=== PATIENT | male | born 1960 | race Caucasian/White ===

== ENCOUNTER 2018-03-30 12:25 | Observation (INO) | payer BC ==
[~2018-03-30] VITALS: Ht 167.6 cm; Wt 6.4 kg
[2018-03-30] VITALS (13 sets, daily range): BP systolic 111–149; BP diastolic 73–91
[2018-03-30 13:31] LABS: HEMATOCRIT 47.7 % (42.0-52.0); HEMOGLOBIN 16.1 gm/dL (14.0-18.0); MCH 31.5 pg (26.0-34.0); MCHC 33.9 g/dL (28.0-37.0); MCV 93.1 fL (80.0-100.0); MPV 9.9 fl. (7.2-11.1); RBC 5.12 mil/uL (4.50-6.00); RDW-CV 13.8 % (10.5-14.5); WBC 8.4 thou/uL (4.0-11.0)
[2018-03-30 13:40] LABS: CALCIUM 8.4 mg/dL (8.5-10.1); CREATININE 1.2 mg/dL (0.6-1.3); POTASSIUM 3.9 mmol/L (3.5-5.1)
[2018-03-30 13:42] LABS: APTT 27.8 Seconds (25.0-31.3); INR 1.1; PROTIME 10.4 Seconds (9.20-11.50)
--- NOTE | 2018-03-30 15:08 | EKG ---
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: [facility] : 1960 Requested By: Maynor Daniels Order Number: [id number] Reading MD: Maynor Daniels Measurements Intervals [place] Rate: 59 P: 62 WA: 158 QRS: 46 QRSD: 97 T: 61 QT: 419 QTc: 415 Interpretive Statements Sinus rhythm Possible left atrial enlargement Diffuse ST segment elevation, early repolarization No previous ECG available for comparison Electronically Signed On 03-30-2018 15:08:05 CDT by Maynor Daniels [email or web address] <ELECTRONICALLY SIGNED> By: Maynor Daniels MD, [facility] 03/30/18 1508 1402 1402 Maynor Daniels MD, FACC /EPI
[2018-03-30] MEDS ORDERED: LIPITOR 20 MG T20 M1 PO (16:45)
[2018-03-30] MEDS ORDERED: LOPRESSOR25 PO (16:45)
[2018-03-30] MEDS ORDERED: PLAVIX 75 MG TA75 M1 PO (16:46)
[2018-03-30] MEDS ORDERED: LISINOPRIL2.5 MG PO (16:46)
[2018-03-30] MEDS ORDERED: ASPIR 8181 MG PO (16:47)
[2018-03-30] MEDS ORDERED: NITROGLYCERIN0.4 MG SUBLING (16:47)
--- NOTE | 2018-03-30 18:12 | NUR ---
RECEIVED REPORT AT BEDSIDE FROM GAS OPERATIONS SUPERINTENDENT NURSE AND ASSUMED CARE OF PT @ 2170.PT IS A/O,VSS,TRACING SB ON THE MONITOR.LUNG SOUNDS ARE CLEAR.LAST BM WAS YESTERDAY.IV RIGHT AC PATENT WITH FLUIDS INFUSING PER ORDERS.RIGHT RADIAL CATH CLEAN,DRY, AND INTACT.PT IS CALM AND COOPERATIVE WITH NO C/O PAIN.PT IS UP AD CHANDAN IN ROOM.LEFT RESTING IN BED WITH CALL LIGHT WITHIN REACH.WILL CONTINUE TO MONITOR FOR DURATION OF SHIFT.PT INFORMED OF PLAN OF CARE AND COMMUNICATES UNDERSTANDING.HOURLY ROUNDING COMPLETED FOR PT SAFETY.
[2018-03-31 03:43] VITALS: BP 127/78
--- NOTE | 2018-03-31 04:43 | NUR ---
ASSUMED CARE OF PT AT 1900. PT IS ALERT AND ORIENTED. VSS. PERRLA. NO COMPLAINTS OF PAIN. STEADY GAIT. UP AD CHANDAN. PT IS IN SINUS RYTHM ON THE TELEMETRY. PT IS RESTING COMFORTABLY IN BED. RESPIRATIONS ARE EVEN AND NONLABORED. WILL CONTINUE TO MONITOR PT.
[2018-03-31 05:03] LABS: ABSOLUTE BASOPHILS 0.1 thou/uL (0.0-0.2); ABSOLUTE EOSINOPHILS 0.3 thou/uL (0.0-0.7); ABSOLUTE LYMPHOCYTES 3.1 thou/uL (0.8-5.3); ABSOLUTE MONOCYTES 0.6 thou/uL (0.0-1.2); ABSOLUTE NEUTROPHILS 5.9 thou/uL (1.6-8.1); BASOPHILS 0.9 %; EOSINOPHILS 3.5 %; HEMATOCRIT 45.5 % (42.0-52.0); HEMOGLOBIN 15.3 gm/dL (14.0-18.0); LYMPHOCYTES 30.8 %; MCH 31.5 pg (26.0-34.0); MCHC 33.7 g/dL (28.0-37.0); MCV 93.3 fL (80.0-100.0); MONOCYTES 5.9 %; MPV 10.3 fl. (7.2-11.1); NUCLEATED RBCS 0 /100WBC; PLATELET COUNT* 168 thou/uL (150-400); POLYS 58.9 %; RBC 4.88 mil/uL (4.50-6.00); RDW-CV 14.1 % (10.5-14.5); WBC 10.1 thou/uL (4.0-11.0)
[2018-03-31 05:29] LABS: CREATININE 1.2 mg/dL (0.6-1.3); TROPONIN-I LEVEL <0.06 ng/mL (<0.06)
[2018-03-31 08:00] VITALS: BP 148/82
--- NOTE | 2018-03-31 09:39 | NUR ---
RECEIVED REPORT FROM CHARITY AND ASSUMED CARE OF PT @ 2798.PT IS A/O,VSS,TRACING SR ON THE MONITOR.LUNG SOUNDS ARE CLEAR.LAST BM WAS YESTERDAY.IV RIGHT AC PATENT AND SALINE LOCKED. PT IS CALM AND COOPERATIVE WITH NO C/O PAIN.UP AD CHANDAN IN ROOM.HOURLY ROUNDING COMPLETED FOR PT SAFETY.CALL LIGHT WITHIN REACH.PT OK FOR DISCHARGE BY CARDIOLOGY.PAPERWORK COMPLETED AND GIVEN TO PT.IV REMOVED.HEART MONITOR REMOVED AND RETURNED TO NURSING STATION.ALL PERSONAL BELONGINGS PACKED AND TAKEN WITH PT.
[2018-03-31 09:53] VITALS: BP 148/82
[2018-03-31 10:12] VITALS: BP 148/82
--- NOTE | 2018-03-31 11:14 | EKG ---
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
--- NOTE | 2018-03-31 16:18 | H ---
[place] [address] HISTORY AND PHYSICAL Name: JOSE GUADALUPE ABRAMS Room: [address] Timothy#: [id number] Admission: 03/30/18 Attend Phys: Maynor Daniels MD Discharge: 03/31/18 Date of : 64 Report #: [id number] THIS REPORT FOR: //name// CC: EARNEST Daniels INDICATION: Chest pain consistent with progressive angina. HISTORY OF PRESENT ILLNESS: The patient is a 57-year-old gentleman who was seen at outside hospital with recurrent chest pain last weekend and then again on Tuesday, described as midsternal, similar to the pain he experienced 2 years ago with an episode of unstable angina. Two years ago, he underwent percutaneous coronary intervention with drug-eluting stent placed to the mid left anterior descending coronary artery. EKG shows sinus rhythm with some peaked T waves in the precordial leads. I do not appreciate Q-waves or significant ST segment depression or elevation. Risk factors include tobacco use, hypertension and hyperlipidemia. PAST MEDICAL HISTORY: 1. Coronary artery disease. 2. Hyperlipidemia. 3. Hypertension. 4. Chronic tobacco use. SOCIAL HISTORY: The patient smokes 1-1/2 packs of cigarettes daily. He does not drink alcohol. FAMILY HISTORY: Noncontributory. REVIEW OF SYSTEMS: CONSTITUTIONAL: He denies convulsions, seizures or focal paralysis. GENERAL: There is no unexplained weight loss, fevers, chills or sweats. CHEST: He has occasional cough that is nonproductive. He denies underlying lung disease. CARDIOVASCULAR: As outlined above. ENDOCRINE: No history of diabetes or thyroid disease. GASTROINTESTINAL: No nausea, vomiting, hematemesis, melena, hematochezia or jaundice. GENITOURINARY: No dysuria, hematuria. He does have BPH. HEMATOLOGIC AND LYMPHATIC: No history of anemia, bleeding disorder, cancer, blood clots. ALLERGY AND IMMUNOLOGIC: No significant drug or seasonal allergies. MUSCULOSKELETAL: He has some mild arthritis without connective tissue disease. SKIN: No recent rashes, hives or chronic skin conditions. EYES: He does wear glasses. He has no acute change in vision. EARS, NOSE, MOUTH, THROAT: He denies decreased [place] [address] HISTORY AND PHYSICAL Name: JOSE GUADALUPE ABRAMS Room: [address] Timothy#: [id number] Admission: 03/30/18 Attend Phys: Maynor Daniels MD Discharge: 03/31/18 Date of : 64 Report #: [id number] PHYSICAL EXAMINATION: VITAL SIGNS: Stable. Blood pressure 140/80, heart rate 68. GENERAL: This is a pleasant gentleman who is in no distress. Mood and affect appropriate. HEENT: Extraocular muscles intact. Mucous membranes are moist. NECK: Shows no jugular venous distention. There are no carotid bruits. CHEST: Reveals clear lung castellanos without wheezes or rales. CARDIAC: Reveals a regular rhythm, normal S1 and S2. I do not appreciate gallop or murmur. ABDOMEN: Reveals normal bowel sounds. The abdomen is soft, nontender. EXTREMITIES: Show no edema. Peripheral pulses 2+ and palpable. SKIN: Warm and dry. IMPRESSION AND RECOMMENDATIONS: 1. Coronary artery disease with symptoms to suggest progressive angina. We will proceed with cardiac catheterization and coronary angiography. Further intervention will be pending the results of those studies. 2. Hyperlipidemia. Continue atorvastatin with a goal LDL of 70 or less. 3. Hypertension. Blood pressure adequately controlled on current cardiac regimen. 4. Chronic tobacco use, smoking cessation discussed and advised. <ELECTRONICALLY SIGNED> By: Maynor Daniels MD, FACC 03/31/18 1618 1414 1439Maynor Daniels MD, FACC /nt
--- NOTE | 2018-04-03 12:58 | CARD ---
[address] [address] CARDIAC CATH REPORT Name: JOSE GUADALUPE ABRAMS [employer] Room: [address] Jean Pierre Aguirre#: [id number] Admission: 03/30/18 Attend Phys: Maynor Daniels MD Discharge: 03/31/18 Date of : 64 Report #: [id number] THIS REPORT FOR: //name// APPROVED REPORT Study performed: 03/30/2018 13:50:39 Patient Details Patient Status: Out-Patient Room #: 222 The patient is a 57 year-old male Event Personnel Maynor Daniels Greenhouse Assistant, Billie Montiel RN Die Cleaner, Ramirez Collier (R) Monitor, Jaya Quinn Scrub, Britney Cho RTR Scrub, Ti Andrade Security Systems Manager Procedures Performed ROSY Place w/wo Plasty Single LAD Indication Chest pain Risk Factors Arterial Hypertension, Hypercholesterolemia Previous Procedures/Diagnoses Previous PCI Admission/Lab Medications/Medications given during procedure Heparin Unfract. Procedure Narrative The patient was brought electively to the Cardiac Catheterization Laboratory and was prepped and draped in a sterile manner. The right wrist was infiltrated with 1% Lidocaine subcutaneous anesthesia. A Slender Glidesheath sheath was inserted into the Right Radial Artery. Coronary angiography was performed using coronary diagnostic catheters. The right coronary system was accessed and visualized with a DCR: [place] 4.0 5fr catheter. The left coronary system was accessed and visualized with a DCR: [place] 4.0 5fr catheter. Left ventricular/Aortic Valve gradient assessed via catheter pullback. Closure device was deployed with a 6 Fr Vasc-Band Reg 24cm. The patient tolerated the procedure well and there were no complications associated with the procedure. [place] [address] CARDIAC CATH REPORT Name: JOSE GUADALUPE ABRAMS Room: [address]#: [id number] Admission: 03/30/18 Attend Phys: Maynor Daniels MD Discharge: 03/31/18 Date of : 64 Report #: [id number] Intraoperative Conscious Sedation Sedation start time: 14:26 Case end Time: 15:19 Fentanyl 50 mcg Versed 2 mg Fluoro Time: 9.4 minutes Dose: DAP 57453 cGycm2 1754 mGy Contrast Type and Amount: Omnipaque 150 ml Coronary Angiography The patient's coronary anatomy is right dominant. Diagnostic Cath Left Main Normal LAD There is a proximal stent with 70% in-stent restenosis. There is a 70% stenosis in the mid LAD after the takeoff of a first diagonal branch. The remainder of the vessel is free of significant disease. Diagonal 1 There is an ostial 70% stenosis. Diagonal 2 Small in caliber and free of significant disease. Circumflex No hemodynamically significant stenoses noted. OM1 Free of significant disease. Right Coronary There is a 70% proximal right coronary stenosis. The mid and distal vessel are free of significant disease. R PDA Free of significant disease. RPLV Free of significant disease. Ramus There is a ramus branch with marginal distribution. The vessel is free of significant disease. Left Ventriculography Left Ventriculography was not performed. Hemodynamics The aortic pressure is 123/68 mmHg with a mean of 87 mmHg. The left ventricular pressure is 109/10 mmHg with a mean of mmHg. The left ventricular end diastolic pressure is 10 mmHg. There was no gradient across the aortic valve upon pullback. Pullback from the left ventricle to the aorta revealed no gradient across the aortic valve. PCI Technique Lesion Anticoagulation was achieved with Heparin. Patient was preloaded with Plavix. Percutaneous coronary intervention was performed on the mid left anterior descending artery segment. The lesion stenosis prior to intervention was 90% with LELO 3 flow. A 6FR XB LAD 3.0 100CM [place] [address] CARDIAC CATH REPORT Name: JOSE GUADALUPE ABRAMS Room: [address]#: [id number] Admission: 03/30/18 Attend Phys: Maynor Daniels MD Discharge: 03/31/18 Date of : 64 Report #: [id number] Catheter was used to engage the lm ostium. A IG: BMW 190cm Interventional Guidewire was used to cross the lesion. BALLOON DILATION A Balloon catheter Mini Trek RX 2.0 X 8 was inserted and inflated up to 14.00atm for 6seconds. Repeat angiography revealed the following post-dilatation results: 50% stenosis. Additional Inflation: 18.00atm for 16seconds. Stent in the mid lad had diffuse tubular 90% instent restenosis STENT DEPLOYMENT A drug-eluting stent Xience Alpine RX 3.0X38 was inserted and inflated up to 8.00atm for 11seconds. Additional Inflation: 12.00atm for 15seconds. Final angiography reveals 0 % stenosis with LELO 3 flow. COMMENTS Plaque shift during stenting resulted in 80% stenosis of the ostium of the second diagonal artery that arose from within the stent. PCI Technique Lesion 2 Percutaneous Coronary Intervention was performed on the second diagonal branch segment. Patient was preloaded with Plavix. Percutaneous coronary intervention was performed on the second diagonal branch segment. The lesion stenosis prior to intervention was 80% with LELO 3 flow. A 6FR XB LAD 3.0 100CM Guide Catheter was used to engage the lm ostium. A IG: BMW 190cm Interventional Guidewire was used to cross the lesion. Balloon Dilation A Balloon catheter Mini Trek RX 2.0 X 8 was inserted and inflated up to 12.00atm for 13seconds. Repeat angiography revealed the following post-dilatation results: 0% stenosis. Additional Inflation: 18.00atm for 25seconds. Final angiography reveals 0 % stenosis with LELO 3 flow. Conclusion 1. 90% instent restenosis of a stent in the mid lad, with a more distal 80% stenosis noted in the mid lad 2. 80% stenosis noted of the mid rca 3. successful placement of a single drug eluting stent within the previous stent in the mid lad [address] [address] CARDIAC CATH REPORT Name: JOSE GUADALUPE ABRAMS Room: [address] [place]#: [id number] Admission: 03/30/18 Attend Phys: Maynor Daniels MD Discharge: 03/31/18 Date of : 64 Report #: [id number] 4. plaque shift during stenting required PTCA of the second diagonal branch that arose from within the stent Recommendations return electively for stenting of the rca Medications Administered Clopidogrel Diagnostic Cath Approved by: Maynor Daniels MD Date/Time: <ELECTRONICALLY SIGNED> By: Ti Andrade MD, FACC 04/03/18 1257 1257 1257Davijeremy Andrade MD, FACC /INF
--- NOTE | 2018-04-10 09:05 | D ---
[address] [address] DISCHARGE SUMMARY Name: JOSE ALBERTOJOSE GUADALUPE R Room: [address] Jean Pierre Aguirre#: [id number] Admission: 03/30/18 Attend Phys: Maynor Daniels MD Discharge: 03/31/18 Date of : 64 Report #: [id number] THIS REPORT FOR: //name// CC: EARNEST Daniels DISCHARGE DIAGNOSES: 1. Coronary artery disease. 2. Unstable angina. 3. Hyperlipidemia. 4. Hypertension. 5. Chronic tobacco use. PROCEDURE DURING THE HOSPITALIZATION: 1. Cardiac catheterization with left heart catheterization and coronary angiography. 2. Percutaneous coronary intervention to the proximal to mid left anterior descending coronary artery. HOSPITAL COURSE: The patient was admitted to the hospital with progressive chest pain consistent with unstable angina. The patient underwent coronary angiography and left heart catheterization. He was found to have high-grade in-stent restenosis in the proximal LAD. The patient was also noted to have a new stenosis distal to the proximal LAD stent, as well as a new stenosis in the proximal right coronary artery. The patient underwent percutaneous coronary intervention to the proximal to mid left anterior descending coronary artery without complication. The patient tolerated the procedure well without complication. His hospital course was unremarkable. Plans are to have the patient return to the lab tester in the near future for intervention to the right coronary artery. DISCHARGE MEDICATIONS: Plavix 75 mg daily, lisinopril 2.5 mg daily, aspirin 81 mg daily, metoprolol tartrate 12.5 mg b.i.d., atorvastatin 20 mg at bedtime. DISPOSITION: The patient is being discharged today and will follow up for percutaneous coronary intervention on 04/26/2018 and then follow up 2 weeks later in the Cardiology Clinic. <ELECTRONICALLY SIGNED> By: Maynor Daniels MD, FACC 04/10/18 0905 0846 0916Micgil Daniels MD, FACC /nt
== END 2018-03-31 10:46 | disposition home or self-care (01) ==
LOC: M.CL 12:25 → M.TBA-ER 16:01 → M.2W 16:01
PROVIDERS: Internal Medicine Cardiovascular Disease; ADMIT Internal Medicine Cardiovascular Disease
DX: I25.110 Atherosclerotic heart disease of native coronary artery with unstable angina pectoris (principal); I10 Essential (primary) hypertension; E78.5 Hyperlipidemia, unspecified; F17.210 Nicotine dependence, cigarettes, uncomplicated

== ENCOUNTER 2018-04-26 08:29 | Observation (INO) | payer BC ==
[2018-04-26] VITALS (11 sets, daily range): BP systolic 146–174; BP diastolic 64–89
[~2018-04-26] VITALS: Ht 167.6 cm; Wt 62.1 kg
[~2018-04-26 08:29] MED LIST: ASPIR 8181 MG PO; LIPITOR 20 MG T20 M1 PO; LISINOPRIL2.5 MG PO; LOPRESSOR25 PO; NITROGLYCERIN0.4 MG SUBLING; PLAVIX 75 MG TA75 M1 PO
[2018-04-26] MEDS ORDERED: ATORVASTATIN CA40 MG PO (09:02)
[2018-04-26 09:05] LABS: HEMATOCRIT 45.5 % (42.0-52.0); HEMOGLOBIN 15.3 gm/dL (14.0-18.0); MCH 31.6 pg (26.0-34.0); MCHC 33.6 g/dL (28.0-37.0); MPV 9.9 fl. (7.2-11.1); RBC 4.84 mil/uL (4.50-6.00); RDW-CV 14.1 % (10.5-14.5); WBC 10.9 thou/uL (4.0-11.0)
[2018-04-26 09:10] LABS: ANION GAP 6 mmol/L (7-16); BUN 13 mg/dL (7-18); CALCIUM 8.6 mg/dL (8.5-10.1); CHLORIDE 101 mmol/L (98-107); CO2 30 mmol/L (21-32); CREATININE 1.1 mg/dL (0.6-1.3); GLUCOSE 91 mg/dL (70-99); POTASSIUM 3.9 mmol/L (3.5-5.1); SODIUM 137 mmol/L (136-145)
[2018-04-26 09:11] LABS: PROTIME 10.3 Seconds (9.20-11.50)
[2018-04-26 09:15] LABS: ALBUMIN 3.5 g/dL (3.4-5.0); ALKALINE PHOSPHATASE 118 U/L (46-116); CHOLESTEROL 135 mg/dL (<200); HDL CHOLESTEROL 42 mg/dL (>40); LDL CHOLESTEROL 53 mg/dL (<100); SGOT 14 U/L (15-37); SGPT 14 U/L (30-65); TC:HDL 3.2 Ratio (Not establshd); TOTAL BILIRUBIN 0.4 mg/dL (<0.1-1.0); TOTAL PROTEIN 7.2 g/dL (6.4-8.2); TRIGLYCERIDE 202 mg/dL (<150); VLDL 40 mg/dL (<40)
[2018-04-26 09:20] LABS: SERUM ASSESSMENT Clear
--- NOTE | 2018-04-26 18:57 | EKG ---
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 <ELECTRONICALLY SIGNED> By: Ti Andrade MD, [facility] 04/26/18 1857 Ti Andrade MD, [facility] /EPI
--- NOTE | 2018-04-26 19:01 | EKG ---
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
[2018-04-27 00:20] VITALS: BP 125/68
--- NOTE | 2018-04-27 02:24 | NUR ---
ASSUMED CARE OF PT AT 1900. PT IS ALERT AND ORIENTED. VSS. PERRLA. NO COMPLAINTS OF PAIN. STEADY GAIT. UP AD CHANDAN. RIGHT GROIN SITE LOOKS UNREMARKABLE. PT IS IN SINUS RYTHM WITH FREQUENT PVCS. PT IS SLEEPING QUIETLY IN BED. RESPIRATIONS ARE EVEN AND NONLABORED. WILL CONTINUE TO MONITOR PT.
[2018-04-27 04:12] VITALS: BP 149/76
[2018-04-27 05:18] LABS: HEMATOCRIT 43.4 % (42.0-52.0); HEMOGLOBIN 14.3 gm/dL (14.0-18.0); MCH 31.1 pg (26.0-34.0); MPV 9.7 fl. (7.2-11.1); RBC 4.61 mil/uL (4.50-6.00)
[2018-04-27 07:30] VITALS: BP 150/92
--- NOTE | 2018-04-27 08:52 | NUR ---
RECEIVED REPORT FROM CHARITY HINOJOSA. ASSUMED CARE OF PT AROUND 729. PT A&O X4. VSS. O2 SAT 98% ON RA. QUALITY PROCESS LEAD IN PLACE TRACING TRIGEMENY. AM ASSESSMENT AND VITALS COMPLETED CHARTED. IV TO RIGHT FA INTACT. PT REPORTS SLIGHT TENDERNESS IN RIGHT GROIN CATH SITE - DRESSING IS CDI, AREA IS SLIGHTLY FIRM. PT SEEN BY CARDIOLOGY - DC TODAY. PT CURRENTLY EATING BREAKFAST IN BED. CALL LIGHT IS WITHIN REACH, HOURLY ROUNDING PERFORMED. LOW FALL RISK PRECAUTIONS IN PLACE. WCTM.
[2018-04-27 09:16] VITALS: BP 150/92
--- NOTE | 2018-04-27 09:59 | NUR ---
DISCAHRGE ORDERS RECEIVED. DISCHARGE COMPLETED CHARTED. DISCHARGE SUMMARY GONE OVER WITH PT, PT COMMUNICATES UNDERSTANDING. PT AWARE OF FOLLOW UP APPOINTMENTS. IV AND CERTIFIED HISTOLOGIC TECHNICIAN REMOVED. ALL BELONGINGS GATHERED AND SENT HOME WITH THE PT. PT LEFT UNIT WALKING WITH NURSING STAFF. PT LEFT HOSPITAL IN CAR WITH MOTHER.
--- NOTE | 2018-04-27 14:47 | CARD ---
[address] [address] CARDIAC CATH REPORT Name: JOSE GUADALUPE ABRAMS [employer] Room: [address] IN [facility]#: [id number] Admission: 04/26/18 Attend Phys: Ti Andrade MD, F Discharge: 04/27/18 Date of : 64 Report #: [id number] THIS REPORT FOR: //name// APPROVED REPORT Study performed: 04/26/2018 09:07:09 Patient Details Patient Status: Out-Patient Room #: The patient is a 57 year-old male Event Personnel Ti Andrade Branch Or Department Chief Librarian, Renetta Vu RN Media Professional, Evelyn Sorensen Monitor, Ramirez Collier (R) Scrub Procedures Performed Art Access - R femoral artery* , Left VentriculogramDES Place w/wo Plasty Single RCA 150249 , Selective Right and Left Coronary Angiography Indication Stable angina , Chest pain Risk Factors Arterial Hypertension, Hypercholesterolemia, Tobacco History () Previous Procedures/Diagnoses Previous PCI, Previous [place] Admission/Lab Medications/Medications given during procedure Heparin Unfract. Procedure Narrative The patient was brought electively to the Cardiac Catheterization Laboratory and was prepped and draped in a sterile manner. The right femoral was infiltrated with 2% Lidocaine subcutaneous anesthesia. A 6fr Ultimum Sheath sheath was inserted into the right femoral artery. Coronary angiography was performed using coronary diagnostic catheters. The right coronary system was accessed and visualized with a 6FR JCR 4 100CM catheter. The left coronary system was accessed and visualized with a JL4 6fr catheter. The left ventricle was accessed and visualized with a PC: Pig 6fr catheter. Left ventricular/Aortic Valve gradient assessed via catheter pullback[place] [address] CARDIAC CATH REPORT Name: JOSE GUADALUPE ABRAMS [employer] Room: [address]#: [id number] Admission: 04/26/18 Attend Phys: Ti Andrade MD, F Discharge: 04/27/18 Date of : 64 Report #: [id number] was performed in SOTELO projection. Closure device was deployed with a 6 Fr Angioseal STS 6Fr. The patient tolerated the procedure well and there were no complications associated with the procedure. There was no hematoma. Procedure attempted from the right radial artery. Radial artery could not be located with needle. Decided to proceed from the right femoral artery. Intraoperative Conscious Sedation Sedation start time: 10:20 Case end Time: 11:19 Fentanyl 50 mcg Versed 2 mg Fluoro Time: 3.1 minutes Dose: DAP 17030 cGycm2 496.55 mGy Contrast Type and Amount: Omnipaque 150 ml Coronary Angiography The patient's coronary anatomy is right dominant. Diagnostic Cath Left Main 0% stenosis LAD 30% ostial stenosis. Stent in mid lad had 0% stenosis Diagonal 1 50% ostial stenosis Diagonal 2 0% stenosis Circumflex 0% stenosis Right Coronary 90% proximal stenosis Ramus 40% ostial stenosis Left Ventriculography The left ventricle is normal in size with normal contractility. The left ventricular ejection fraction is estimated to be 55-60%. There is no mitral insufficiency. Hemodynamics The aortic pressure is 168/78 mmHg with a mean of mmHg. The left ventricular pressure is 164/10 mmHg with a mean of mmHg. The left ventricular end diastolic pressure is 14 mmHg. There was no gradient across the aortic valve upon pullback. Pullback from the left ventricle to the aorta revealed no gradient across the aortic valve. PCI Technique Lesion Anticoagulation was achieved with Heparin. Patient was preloaded with Plavix. Percutaneous coronary intervention was performed on the proximal right coronary artery. The lesion stenosis prior to intervention was 90% with LELO 3 flow. A 6FR JCR 4 100[place] [address] CARDIAC CATH REPORT Name: JOSE ALBERTOJOSE GUADALUPE Room: [address]#: [id number] Admission: 04/26/18 Attend Phys: Ti Andrade MD, F Discharge: 04/27/18 Date of : 64 Report #: [id number] Catheter was used to engage the rca ostium. A IG: BMW 190cm Interventional Guidewire was used to cross the lesion. BALLOON DILATION A Balloon catheter Trek RX 2.5 X 8 was inserted and inflated up to 12.00atm for 10seconds. Repeat angiography revealed the following post-dilatation results: 50% stenosis. STENT DEPLOYMENT A drug-eluting stent Xience Alpine RX 2.75X15 was inserted and inflated up to 12.00atm for 12seconds. Repeat angiography revealed the following post-stent deployment results: 0% stenosis. Additional Inflation: 15.00atm for 13seconds. Additional Inflation: 16.00atm for 9seconds. 17 VIVI x 13 seconds Final angiography reveals 0 % stenosis with LELO 3 flow. Conclusion 1. no restenosis of stent in the mid lad 2. successful placement of a drug eluting stent in the proximal rca Recommendations Smoking Cessation Medications Administered Clopidogrel <ELECTRONICALLY SIGNED> By: Ti Andrade MD, [facility] 04/27/18 1447 1447 1447Ti Andrade MD, [facility] /INF
--- NOTE | 2018-04-27 15:46 | EKG ---
[place] [address] ELECTROCARDIOGRAM REPORT Name: JOSE ALBERTOJOSE GUADALUPE Room: [address] DIS IN M.R.#: [id number] Admission: 04/26/18 Attend Phys: Ti Andrade MD, F Discharge: 04/27/18 Date of : 64 Report #: [id number] THIS REPORT FOR: //name// [facility] Test Date: 2018-04-27 Test Time: 08:28:14 Pat Name: JOSE GUADALUPE ABRAMS Department: Room: [address] Gender: M Map Drafter: : 1960 Requested By: Ti Andrade Order Number: [id number] Dorothy MD: Maynor Daniels Measurements Intervals Edson Rate: 67 P: 73 SC: 151 QRS: 54 QRSD: 90 T: 74 QT: 375 QTc: 396 Interpretive Statements Sinus rhythm Multiple ventricular premature complexes ST elevation, consider early repolarization Tall T, consider metabolic/ischemic abnrm Compared to ECG 04/26/2018 15:30:35 Ventricular premature complex(es) now present ST (T wave) deviation now present T-wave abnormality now present Electronically Signed On 04-27-2018 15:46:00 CDT by Maynor Daniels [email or web address] <ELECTRONICALLY SIGNED> By: Maynor Daniels MD, FACC 04/27/18 1546 7 Maynor Daniels MD, FAC /EPI
--- NOTE | 2018-04-30 13:00 | SHORT ---
[facility] [address] [place] [address] SHORT STAY SUMMARY Name: JOSE GUADALUPE ABRAMS Room: [address] Jean [place] Aguirre#: [id number] Admission: 04/26/18 Attend Phys: Ti Andrade MD, F Discharge: 04/27/18 Date of : 64 Report #: [id number] THIS REPORT FOR: //name// CC: EARNEST Dixon NP DATE OF SERVICE: 04/27/2018 DATE OF DISCHARGE: 04/27/2018. DISCHARGE DIAGNOSES: 1. Coronary artery disease. 2. Angina pectoris. 3. Tobacco abuse. 4. Hyperlipidemia. CONSULTANTS: None. PROCEDURES: Left heart catheterization with placement of a drug-eluting stent in the right coronary artery via the femoral approach. HISTORY OF THE PRESENT ILLNESS: The Hannah is a 57-year-old white male who was brought to the outpatient department to undergo repeat cardiac catheterization. The patient initially presented 2 years ago when he was at work in [place], [place]. He began to have chest pain. He was taken to the local Emergency Room. He apparently was found to be having an acute myocardial infarction. He was apparently transferred by paramedics to [facility] in [place], [place] where he underwent emergent angioplasty and had a drug-eluting stent placed in the mid LAD. He previously was seen a diamond grinder in [place], [place] who is no longer there. He has chronically been taking metoprolol, lisinopril, aspirin, Lipitor and Plavix. However, recently, he began to have recurrent chest discomfort similar to his myocardial infarction. He was seen by Holli Dixon, nurse practitioner in [place], [place]. He was noted to have abnormal ECG. The next day, he was referred to Dr. Maynor Daniels at [place] on March 30. He underwent repeat heart catheterization from the right radial artery. Results showed severe restenosis of the stent in the mid LAD diffusely 70%. There was also a 70% stenosis after the second diagonal branch. The circumflex had no significant disease. The right coronary had a discrete proximal 80% stenosis. No left ventriculogram was performed. I then placed a single long drug-eluting stent in the mid LAD that covered both lesions. There was noted to be compromise of the second diagonal branch arose within the stent. I performed balloon angioplasty of this diagonal artery. The patient tolerated the procedure well. He was then discharged. He followed up with Holli Dixon in [place]. He did return to [place] [address] SHORT STAY SUMMARY Name: JOSE GUADALUPE ABRAMS Room: [address] [place]#: [id number] Admission: 04/26/18 Attend Phys: Ti Andrade MD, F Discharge: 04/27/18 Date of : 64 Report #: [id number] have frequent chest discomfort. He was electively admitted at this time for stenting of the right coronary artery. PAST MEDICAL HISTORY: Significant for no major surgical procedures. He did have a history of hypertension and hyperlipidemia. MEDICATIONS: Consist of metoprolol, lisinopril, aspirin, Lipitor, Plavix, although recently his Lipitor was increased from 20 to 40 mg a day. ALLERGIES: He had no known drug allergies. SOCIAL HISTORY: He smoked a pack of cigarettes a day, although recently was prescribed Chantix. No history of alcohol abuse. He and his live in [place], [place]. He works for [employer] in [employer]. PHYSICAL EXAMINATION: VITAL SIGNS: His blood pressure was 130/70 and pulse 60. He was afebrile. HEENT: Mucous members moist. CHEST: Clear to auscultation. CARDIOVASCULAR: Regular rate and rhythm. ABDOMEN: Soft. EXTREMITIES: Had no edema. SKIN: Warm and dry. RADIOLOGICAL DATA: His ECG showed a sinus rhythm and occasional PVC. LABORATORY DATA: His lab work revealed potassium 3.9, creatinine 1.1 and glucose 91. Liver function studies were normal. His cholesterol 135, triglyceride 202, HDL 42 and LDL 53. White blood cell count 10.9 and hemoglobin 15.3. HOSPITAL COURSE: The patient was brought to the outpatient department. I attempted cardiac catheterization from the right radial artery. However, arterial blood could not be obtained. The patient had recent angiogram from the right radial artery. I therefore performed it from the right femoral artery. Results showed normal left ventricular function with an ejection fraction of 60%. The stent in the mid LAD had no restenosis. There is no restenosis noted of the diagonal branches. The circumflex had no significant disease. The right coronary artery had a proximal discrete 90% stenosis. The ramus branch had a 40% stenosis. He was given heparin and then placed a single drug-eluting stent in the right coronary artery. He tolerated the procedure well. An Angio-Seal was placed. Prior to discharge, the patient was ambulating and had no further complaints. He was discharged on his home medications that consisted of aspirin 81 mg a day, Lipitor 40 mg a day, Plavix 75 mg a day, lisinopril 2.5 mg a day, metoprolol tartrate 25 mg twice a day and he has nitroglycerin to take as needed for chest pain. He was discharged to return to the care of Holli Dixon, [facility] [address] [place] [address] SHORT STAY SUMMARY Name: JOSE GUADALUPE ABRAMS Room: [address] Jean [place] Aguirre#: [id number] Admission: 04/26/18 Attend Phys: Ti Andrade MD, F Discharge: 04/27/18 Date of : 64 Report #: [id number] nurse practitioner in [place], [place]. He was planning to return to work at [employer] in 5 days. I plan on seeing him in the Cardiology Clinic in [place] in 1 month. He was felt to have a good prognosis from cardiac standpoint. I strongly recommended he attempt to stop smoking. He was seen by Cardiac Rehabilitation prior to discharge. He was felt to have no restrictions from cardiac standpoint. He was to call my office. He had recurrent chest pain, shortness of breath or bleeding. At time of discharge, he is ambulating, had no further complaints and he had a blood pressure of 130/70 with a pulse is 60. <ELECTRONICALLY SIGNED> By: Maynor Daniels MD, [facility] 04/30/18 1300 0829 [id number] luis Andrade MD, FACC /nt
== END 2018-04-27 09:55 | disposition home or self-care (01) ==
LOC: M.CL 08:29 → M.TBA-CV 14:39 → M.2W 14:39
PROVIDERS: ADMIT Internal Medicine Cardiovascular Disease
DX: I25.119 Atherosclerotic heart disease of native coronary artery with unspecified angina pectoris (principal); I10 Essential (primary) hypertension; E78.5 Hyperlipidemia, unspecified; F17.210 Nicotine dependence, cigarettes, uncomplicated; Z79.899 Other long term (current) drug therapy

== ENCOUNTER → 2018-08-22 | Outpatient (CLI) | payer BC ==
[~2018-08-22] VITALS: Ht 167.6 cm; Wt 65.8 kg
[~2018-08-22] MED LIST changes: +ATORVASTATIN CA40 MG PO; +IMDUR 30 MG TAB30 M1 PO; +ZANAFLEX4 MG PO
[2018-08-22 11:52] VITALS: BP 131/83
[2018-08-22 11:53] LABS: HEMOGLOBIN 14.8 gm/dL (14.0-18.0); MCH 32.1 pg (26.0-34.0); MCHC 33.6 g/dL (28.0-37.0); MCV 95.6 fL (80.0-100.0); MPV 10.1 fl. (7.2-11.1); RBC 4.6 mil/uL (4.50-6.00); RDW-CV 13.7 % (10.5-14.5); WBC 9.4 thou/uL (4.0-11.0)
[2018-08-22 12:01] LABS: ANION GAP 7 mmol/L (7-16); APTT 27.4 Seconds (25.0-31.3); BUN 11 mg/dL (7-18); CALCIUM 8.2 mg/dL (8.5-10.1); CHLORIDE 104 mmol/L (98-107); CO2 30 mmol/L (21-32); CREATININE 1.2 mg/dL (0.6-1.3); GLUCOSE 89 mg/dL (70-99); POTASSIUM 3.8 mmol/L (3.5-5.1); PROTIME 10.7 Seconds (9.20-11.50); SODIUM 141 mmol/L (136-145)
[2018-08-22 12:05] LABS: ALBUMIN 3.3 g/dL (3.4-5.0); ALKALINE PHOSPHATASE 126 U/L (46-116); CHOLESTEROL 131 mg/dL (<200); HDL CHOLESTEROL 34 mg/dL (>40); LDL CHOLESTEROL 48 mg/dL (<100); SERUM ASSESSMENT Clear; SGOT 12 U/L (15-37); SGPT 19 U/L (30-65); TC:HDL 3.9 Ratio (Not establshd); TOTAL BILIRUBIN 0.4 mg/dL (<0.1-1.0); TOTAL PROTEIN 6.7 g/dL (6.4-8.2); TRIGLYCERIDE 249 mg/dL (<150); VLDL 50 mg/dL (<40)
[2018-08-22 13:39] VITALS: BP 135/80
--- NOTE | 2018-08-22 17:03 | EKG ---
[place] [address] ELECTROCARDIOGRAM REPORT Name: JOSE GUADALUPE ABRAMS Room: [facility]#: [id number] Admission: 08/22/18 Attend Phys: Holli Dixon Discharge: Date of : 64 Report #: [id number] THIS REPORT FOR: //name// [facility] Test Date: 2018-08-22 Test Time: 11:25:17 Pat Name: JOSE GUADALUPE ABRAMS Department: Room: Gender: M Director Post: : 1960 Requested By: Maynor Daniels Order Number: [id number] Reading MD: Maynor Daniels Measurements Intervals [place] Rate: 66 P: 68 NE: 153 QRS: 44 QRSD: 91 T: 67 QT: 380 QTc: 399 Interpretive Statements Sinus rhythm Premature ventricular complexes present Minimal ST elevation, anterior leads Compared to ECG 04/27/2018 08:28:14 T-wave abnormality no longer present ST (T wave) deviation still present Electronically Signed On 08-22-2018 17:03:04 BUILDING SUPERINTENDENT by Maynor Daniels [email or web address] <ELECTRONICALLY SIGNED> By: Maynor Daniels MD, [facility] 08/22/18 1703 1125 1125 Maynor Daniels MD, [facility] /EPI
--- NOTE | 2018-08-22 17:24 | CARD ---
[address] [address] CARDIAC CATH REPORT Name: JOSE GUADALUPE ABRAMS Room: [facility].#: [id number] Admission: 08/22/18 Attend Phys: Holli Dixon Discharge: Date of : 64 Report #: [id number] THIS REPORT FOR: //name// APPROVED REPORT Study performed: 08/22/2018 11:52:40 Patient Details Patient Status: Out-Patient Room #: The patient is a 58 year-old male Event Personnel Maynor Daniels Registered Route Associate, Renetta Vu RN Residential Builder, Renetta Vu RN Residential Builder, Britney Cho RTR Scrub Procedures Performed Left Heart Cath w/or w/o Coronaries Procedure Narrative A 6fr Ultimum Sheath sheath was inserted into the right femoral artery. Coronary angiography was performed using coronary diagnostic catheters. The right coronary system was accessed and visualized with a Diagnostic JR4 catheter. The left coronary system was accessed and visualized with a Diagnostic JL4 catheter. The left ventricle was accessed and visualized with a Diagnostic Angled Pig catheter. Left ventricular/Aortic Valve gradient assessed via catheter pullback. Closure device was deployed with a Fr MynxGrip 6/7F. The patient tolerated the procedure well and there were no complications associated with the procedure. Intraoperative Conscious Sedation Sedation start time: 12:46 Case end Time: 12:58 Fentanyl 50 mcg Versed 2 mg Fluoro Time: 1.3 minutes Dose: DAP 40423 cGycm2 340 mGy Contrast Type and Amount: Visipaque 110 ml Coronary Angiography The patient's coronary anatomy is right dominant. Diagnostic Cath Left Main Normal [address] [address] CARDIAC CATH REPORT Name: JOSE GUADALUPE ABRAMS Room: [facility]#: [id number] Admission: 08/22/18 Attend Phys: Holli Dixon Discharge: Date of : 64 Report #: [id number] LAD Widely patent stents extending from the proximal to mid LAD. The mid and distal LAD appear free of significant disease. Diagonal 1 50% ostial stenosis that appears daily by stents. The remainder the vessel appears normal. Diagonal 2 Normal. Circumflex Normal in the proximal mid and distal portion. OM1 Large and normal. OM2 Moderate and normal. Right Coronary There is a widely patent stent in the proximal to mid right coronary artery. The distal vessel appears review of significant disease. R PDA Normal. RPLV Normal. Ramus 50% ostial stenosis. The remainder the vessel is normal. Left Ventriculography The left ventricle is normal in size with normal contractility. The left ventricular ejection fraction is estimated to be 60%. Hemodynamics The aortic pressure is 161/69 mmHg with a mean of 97 mmHg. The left ventricular pressure is 163/3 mmHg with a mean of mmHg. The left ventricular end diastolic pressure is 24 mmHg. Conclusion 1. Widely patent stents in the proximal to mid left anterior descending coronary artery. 2. Widely patent stent in the proximal to mid right coronary artery. 3. Ostial narrowing of the intermediate ramus and first diagonal branches that is not appear hemodynamically significant. 4. Normal left ventricular systolic function. 5. Normal left ventricular end-diastolic pressure. Recommendations 1. Continue medical management and aggressive risk factor modification. <ELECTRONICALLY SIGNED> By: Maynor Daniels MD, [facility] 08/22/18 172 22 172Micgil Daniels MD, FAC /INF
--- NOTE | 2018-08-24 08:18 | H ---
[address] [address] HISTORY AND PHYSICAL Name: JOSE GUADALUPE ABRAMS Room: [facility]#: [id number] Admission: 08/22/18 Attend Phys: Holli Dixon Discharge: Date of : 64 Report #: [id number] THIS REPORT FOR: //name// CC: EARNEST Dixon NP INDICATION: Progressive angina. HISTORY OF PRESENT ILLNESS: The patient is a 57-year-old gentleman with coronary artery disease. He had percutaneous coronary intervention in 2016. In 2018, he had recurrent symptoms and had recurrent intervention to the right coronary artery as well as an area of restenosis in the LAD. He also had PTCA of the second diagonal branch. In total, he has had intervention to the LAD, RCA and second diagonal branch. He has preserved left ventricular systolic function. He continues to have chest discomfort. Cardiac risk factors include dyslipidemia, hypertension and tobacco use. PAST MEDICAL HISTORY: 1. Coronary artery disease. 2. Hypertension. 3. Hyperlipidemia. 4. Tobacco use. 5. Left carotid bruit. HOME MEDICATIONS: Metoprolol succinate 25 mg daily, Zanaflex 4 mg t.i.d., lisinopril 2.5 mg daily, Plavix 75 mg daily, aspirin 81 mg daily, atorvastatin 20 mg daily, Nitrostat 0.4 mg sublingual p.r.n. ALLERGIES: None documented. SOCIAL HISTORY: The patient smokes. PHYSICAL EXAMINATION: VITAL SIGNS: Stable. Blood pressure 129/76, pulse rate 65 and regular. GENERAL: This is a pleasant gentleman in no distress. Mood and affect appropriate. HEENT: The patient is wearing glasses. Extraocular muscles intact. Mucous membranes moist. NECK: Shows no jugular venous distention. There is a soft left carotid bruit. CHEST: Reveals clear lung castellanos with diminished expiration. CARDIOVASCULAR: Reveals a regular rhythm without gallop or murmur. ABDOMEN: Reveals normal bowel sounds. The abdomen is soft, nontender. EXTREMITIES: Shows no edema. Peripheral pulses palpable. IMPRESSION: 1. Coronary artery disease with progressive symptoms [place] [address] HISTORY AND PHYSICAL Name: JOSE GUADALUPE ABRAMS Room: [facility]#: [id number] Admission: 08/22/18 Attend Phys: Holli Dixon Discharge: Date of : 64 Report #: [id number] We will proceed with invasive coronary angiography and possible intervention. 2. Hyperlipidemia. Continue atorvastatin with a goal LDL of 70 or less. 3. Hypertension, adequately controlled presently. 4. Tobacco use, cessation advised. <ELECTRONICALLY SIGNED> By: Maynor Daniels MD, [facility] 08/24/18 0818 1240 [id number] Clifton Daniels MD, FACC /nt
== END | disposition home or self-care (01) ==
LOC: M.ULTRA 10:17
PROVIDERS: Internal Medicine Cardiovascular Disease
DX: I25.119 Atherosclerotic heart disease of native coronary artery with unspecified angina pectoris (principal); I10 Essential (primary) hypertension; E78.5 Hyperlipidemia, unspecified; R09.89 Other specified symptoms and signs involving the circulatory and respiratory systems; F17.210 Nicotine dependence, cigarettes, uncomplicated; Z79.899 Other long term (current) drug therapy; Z79.82 Long term (current) use of aspirin; Z79.01 Long term (current) use of anticoagulants